=== PATIENT | male | born 2005 | race Caucasian/White ===

== ENCOUNTER 2023-02-10 19:36 | Emergency (ER) | payer BC ==
[~2023-02-10] VITALS: Ht 180.3 cm; Wt 75.7 kg
--- NOTE | 2023-02-10 20:07 | ED Chest Pain ---
General Chief Complaint: Chest Wall Stated Complaint: LEFT RIB PAIN Nursing Triage Note: TO ED VIA POV AND AMBULATORY TO FT1 WITH C/O LEFT SIDE/CHEST WALL PAIN PRIMARILY WITH MOVEMENT AFTER BENCH PRESSING AT APPROX 1900 TONIGHT AND "FELT A POP". HE DENIES DROPPING BAR/WEIGHTS ON CHEST. Source: patient Exam Limitations: no limitations History of Present Illness Date Seen by Provider: Feb 10, 2023 Time Seen by Provider: 19:56 Initial Comments This is a well-appearing 17-year-old male who presented the ER with complaints of left lateral rib pain. About an hour prior to arrival he was bench pressing weights and while lifting he had suddent pain and heard popping sound in his left lower rib region. Pain is worse with movement, breathing does not affect pain. Better when sitting still. Has not taken pain relievers prior to arrival. Allergies and Home Medications Allergies Coded Allergies: Influenza Virus Vaccines (Verified Allergy, Unknown, 02/10/23) egg (Verified Allergy, Unknown, 02/10/23) tree nut (Verified Allergy, Unknown, 02/10/23) Patient Home Medication List Home Medication List Reviewed: Yes Review of Systems Review of Systems Constitutional: see HPI Past Ifutppb-Lhkxrr-Rlbwue Hx Patient Social History Tobacco Use?: Yes Smoking Status: Current Everyday Smoker Use of E-Cig and/or Vaping dev: Yes E-Cig or Vaping type used: Nicotine Substance use?: No Alcohol Use?: Yes Alcohol Frequency: Once in a while Immunizations Up To Date Influenza Vaccine Up-to-Date: No; Not Current Past Medical History Surgery/Hospitalization HX: SX: WISDOM TEETH Physical Exam Vital Signs Vital Signs - First Documented 02/10/23 19:44 Temp 36.6 Pulse 77 Resp 16 B/P (MAP) 102/61 (75) Pulse Ox 100 O2 Delivery Room Air Capillary Refill : Less Than 3 Seconds Height, Weight, BMI Height: '" Weight: lbs. oz. kg; 23.00 BMI Method: General Appearance: No Apparent Distress, WD/WN HEENT: PERRL/EOMI, Normal ENT Inspection Neck: Full Range of Motion, Normal Inspection, Supple Respiratory: Lungs Clear, Normal Breath Sounds, No Accessory Muscle Use, No Respiratory Distress; No Pleural Rub; Wheezing, Other (left lateral rib tenderness near ribs 9-10) Cardiovascular: Regular Rate, Rhythm, No Edema, No Murmur Gastrointestinal: Normal Bowel Sounds, No Organomegaly, Soft Extremity: Normal Capillary Refill, Normal Inspection, Normal Range of Motion, Non Tender Neurologic/Psychiatric: Alert, Oriented x3, No Motor/Sensory Deficits, Normal Mood/Affect Skin: Normal Color, Warm/Dry Progress/Results/Core Measures Results/Orders My Orders Orders - DAVID DIALLO APRN Ribs/Unilateral With Chest (02/10/23 20:02) Ibuprofen Tablet (Motrin Tablet) (02/10/23 20:15) Vital Signs/I&O 02/10/23 02/10/23 02/10/23 19:44 19:44 20:46 Temp 36.6 36.6 Pulse 77 72 Resp 16 16 B/P (MAP) 102/61 (75) 100/60 Pulse Ox 100 100 O2 Delivery Room Air Room Air Room Air Blood Pressure Mean: 75 Progress Progress Note : Progress Note Patient examined no acute distress. No increased work of breathing, no tachypnea. He has equal breath sounds bilaterally, no concerns for spontaneous pneumothorax at this time. Discussed that symptoms are likely from rib subluxation or costochondral separation. We will go ahead and obtain a chest x- ray for further evaluation. Chest x-ray negative for pneumothorax, acute rib fracture, unremarkable x-ray. Supportive treatment plan reviewed, given ibuprofen 600 mg in ED. Discharge plan of care discussed and he is agreeable with plan. All questions sought were answered, no concerns voiced at time of discharge. Discharged home in stable condition. Diagnostic Imaging Diagonstic Imaging: Xray Comments [facility] [place] NAME: [facility] REC#: [id number] PT STATUS: DEP ER : 2003 PHYSICIAN: DAVID DIALLO APRN ADMIT DATE: 02/10/23/ER Signed Date of Exam:02/10/23 RIBS/UNILATERAL WITH CHEST EXAMINATION: Chest and left rib radiographs. EXAM DATE: 02/10/2023 8:18 PM COMPARISON: None available. HISTORY: Left-sided rib and chest pain. TECHNIQUE: 4 views. FINDINGS: Heart size and pulmonary vasculature are normal. The lungs are clear without consolidation, pleural effusion or pneumothorax. No acute fracture is seen. IMPRESSION: 1. No acute abnormality in the chest. 2. No acute or displaced left rib fracture. Dictated by: Dictated on workstation # [id number] Dict: 02/10/232037 Trans: 02/10/232102 [facility] [id number] Interpreted by: JOLENE BATES DO Electronically signed by: JOLENE BATES DO 02/10/232102 Reviewed: Reviewed by Me Departure Impression Primary Impression: SPRAIN OF RIBS, INITIAL ENCOUNTER Disposition: HOME, SELF-CARE Condition: Improved Departure-Patient Inst. Decision time for Depature: 20:27 Referrals: [employer]ENT [facility] (PCP/Family) Primary Care Physician Patient Instructions: RIB CONTUSION Add. Discharge Instructions: Plan: 1. Rest, avoid heavy lifting, bending, twisting or straining. He may have some discomfort for the next several weeks as your body is healing. 2. You can use ice 20 minutes at a time followed by heat. 3. May take Tylenol or ibuprofen as needed for discomfort [id number]. Ibuprofen and Aleve can help with inflammatory pain. Make sure you take this medication with food. 4. Follow-up with the [facility] or return if you are having any new, concerning, worsening symptoms All discharge instructions reviewed with patient and/or family. Voiced understanding. Work/School Note: School/Childcare Release Date Seen in the Emergency Department: Feb 10, 2023 Time Dismissed from Emergency Department: 20:39 Return to School: Feb 11, 2023 Other Restrictions Listed Below: No heavy lifting over 10lbs, excessive bending or twisting motions [id number] DAVID DIALLO APRN Feb 10, 2023 20:07
[2023-02-10] MEDS ORDERED: IBUPROFEN 600 MG (MOTRIN) TAB PO ONE (20:15)
--- NOTE | 2023-02-10 20:42 | Diagnostic Imaging Report ---
EXAMINATION: Chest and left rib radiographs. EXAM DATE: 02/10/2023 8:18 PM COMPARISON: None available. HISTORY: Left-sided rib and chest pain. TECHNIQUE: 4 views. FINDINGS: Heart size and pulmonary vasculature are normal. The lungs are clear without consolidation, pleural effusion or pneumothorax. No acute fracture is seen. IMPRESSION: 1. No acute abnormality in the chest. 2. No acute or displaced left rib fracture. Dictated by: Dictated on workstation # [id number]
[2023-02-10 20:46] VITALS: BP 100/60
== END 2023-02-10 20:46 | disposition home or self-care (01) ==
LOC: ER 19:39
DX: S23.41XA Sprain of ribs, initial encounter (principal); F17.290 Nicotine dependence, other tobacco product, uncomplicated; Z28.310 Unvaccinated for COVID-19; X50.0XXA Overexertion from strenuous movement or load, initial encounter
CPT/HCPCS: 71101